=== PATIENT | female | born 1945 | race Two or more races ===

== ENCOUNTER 2017-08-25 06:15 | Day surgery (SDC) | payer OTHER | END 2017-08-25 11:20 | disposition home or self-care (01) | LOC: AMB-ENDOS 06:15 | DX: D12.2 Benign neoplasm of ascending colon (principal); K57.32 Diverticulitis of large intestine without perforation or abscess without bleeding; K64.8 Other hemorrhoids ==

== ENCOUNTER 2020-08-08 06:00 | Day surgery (SDC) | payer OTHER | END 2020-08-08 11:00 | disposition home or self-care (01) | LOC: AMB-ENDOS 06:00 | PROVIDERS: ATTEND Surgery | DX: D13.1 Benign neoplasm of stomach (principal); D13.2 Benign neoplasm of duodenum; K29.50 Unspecified chronic gastritis without bleeding; K44.9 Diaphragmatic hernia without obstruction or gangrene ==